=== PATIENT | male | born 1980 | race Hispanic/Latino ===

== ENCOUNTER 2023-02-26 00:34 | Inpatient (IN) | payer SELFPAY ==
[2023-02-26] VITALS (31 sets, daily range): BP systolic 100–122; BP diastolic 54–79; PULSE 71–97; RESP 9–18; TEMP 36.3–37.3; O2SAT 93–100; BMI 21.2
--- NOTE | ~2023-02-26 | XR_ITS ---
EXAMINATION: XR chest 1V portable DATE: 02/26/2023 03:05 INDICATION: Unresponsive. TECHNIQUE: A single frontal view of the chest was obtained. COMPARISON: None. FINDINGS: The chest demonstrates clear lungs without pneumonia, pleural effusion, or pneumothorax. Th e heart size is normal. IMPRESSION: 1. No acute cardiopulmonary disease. Reviewed, dictated and finalized at location A.
--- NOTE | ~2023-02-26 | CT_ITS ---
EXAMINATION: CT brain wo con DATE: 02/26/2023 02:52 INDICATION: Unresponsive. TECHNIQUE: Computed tomography (CT) of the head was performed without intravenous contrast. The mA wa s adjusted according to patient size. Iterative reconstruction technique was employed. The dose-lengt h product was 908.00 mGy-cm. COMPARISON: None FINDINGS: There is no intracranial hemorrhage, acute infarction, or abnormal intracranial mass lesion . The ventricles are normal in size. There is a left anterolateral scalp hematoma. There is mild muco farhat thickening in the paranasal sinuses. The mastoid air cells are normal. The orbits are normal. IMPRESSION: 1. Normal brain. Reviewed, dictated and finalized at location A. IMPRESSION: 1. Normal brain.
[2023-02-26 01:03] LABS: Appearance Urine Clear (Clear); Bacteria Urine None Seen /hpf; Bilirubin Urine Negative (Negative); Blood Urine Negative (Negative); Color Urine Yellow (Yellow); Glucose Urine UA Trace mg/dL (Negative); Ketones Urine Negative (Negative); Leukocyte Esterase Ur Negative LEU/UL (Negative); Nitrate Urine Negative (Negative); Protein Urine Trace mg/dL (Negative); RBC Urine 0-2 /hpf (0-2); Specific Grav Ur 1.007 (1.001-1.035); Squamous Epithelial Cell Urine None seen /hpf (Few); Urobilinogen Urine 0.2 mg/dL (<2.0); WBC Urine 0-5 /hpf
[2023-02-26] MEDS: NALOXONE HCL INJ 2 MG/2 ML AMP 4 MG IV PUSH ×2 (01:05→01:06)
[2023-02-26] MEDS: ONDANSETRON INJ 4 MG/2 ML VIAL IV PUSH ×2 (01:06→08:13)
[2023-02-26 01:15] LABS: Basophils Absolute Auto 0.1 K/mm3 (0.0-0.1); Basophils Percent Auto 0.6 % (0.2-1.2); Eosinophils Absolute Auto 0.1 K/mm3 (0-0.3); Eosinophils Percent Auto 0.6 % (0-4.4); Hematocrit 45.6 % (42.0-52.0); Hemoglobin 14.8 g/dL (14.0-18.0); Immature Granulocyte Absolute 0.03 K/mm3 (0.00-0.031); Immature Granulocyte Percent A 0.4 % (0-0.5); Lymphocytes Absolute Auto 4.71 K/mm3 (0.9-3.2); Lymphocytes Percent Auto 55.7 % (18.3-44.2); Mean Corpuscular HGB Conc 32.5 g/dl (32-36); Mean Corpuscular Hemoglobin 30.5 pg (26-34); Mean Platelet Volume 9.7 fl (7.4-10.4); Monocytes Absolute Auto 0.4 K/mm3 (0.1-0.6); Monocytes Percent Auto 4.8 % (2.6-8.5); Neutrophils Absolute Auto 3.2 K/mm3 (1.3-6.7); Neutrophils Percent Auto 37.9 % (45.5-73.1); Platelet Count Result 370 k/mm3 (150-375); Red Blood Count 4.85 M/mm3 (4.6-6.20); Red Cell Distribution Width 13.2 % (11.5-14.5); White Blood Count 8.5 K/mm3 (4.5-10.0)
--- NOTE | 2023-02-26 01:15 | PC.NURSE ---
Due to mental status, 4 mg of Narcan administered IVP with a VRBO by Dr. Henson at 0030. No improvement in condition. 4 mg of Narcan administered IVP with a VRBO by Dr. Henson. Improvement in condition. Patient removed NPA and began vomiting. Suction set up. 4 mg of Zofran administered IVP with a VRBO from Dr. Henson.
--- NOTE | 2023-02-26 01:18 | ED.GENADULT ---
HPI - General Adult General Chief complaint: Overdose Stated complaint: od Time Seen by Provider: 02/26/23 00:42 History of Present Illness HPI narrative: 42-year-old male presented the emergency department for evaluation after becoming unresponsive at a constitution party at home. Patient was suspected to have taken cocaine. Patient did admit to taking heroin. On scene patient was unresponsive with pinpoint pupils and patient was treated with 2 mg of nasal Narcan and then 2 mg of IV Narcan and had a partial response. Upon arrival to the ED patient was treated with additional 4 of Narcan and had a more significant response and was no longer having sonorous respirations. After approximately 30 minutes patient became more lethargic and was treated with an additional 4 mg of IV Narcan. Case was discussed with the pharmacist and a Narcan drip is being ordered. Related Data Home Medications Medication Instructions Recorded Confirmed No Home Medications 02/26/23 02/26/23 Allergies Allergy/AdvReac Type Severity Reaction Status Date / Time No Known Allergies Allergy Verified 02/26/23 10:43 Review of Systems Review of Systems: ROS unobtainable: Yes unobtainable due to medical condition PMF Past Medical History Medical History Alcohol abuse IV drug abuse Social History Social History Social History: Polysubstance abuse Smoking status: Never smoker Alcohol intake: current Drinks per week: 12 Substance use: current Spiritual care concerns: No Exam Narrative: APPEARANCE: Ill-appearing, somnolent HEAD: normocephalic, atraumatic. EYES: PERRLA/EOMI, conjunctivae clear. NOSE: Normal no drainage THROAT: Pharynx clear, no exudate. NECK: Supple. No adenopathy, no masses. RESPIRATORY: Airway patent, respirations nonlabored. Clear to auscultation bilaterally, no rales, rhonchi, wheezing. CARDIOVASCULAR: Regular rate and rhythm without murmurs rubs or gallops. ABDOMINAL: Soft, nontender, nondistended, normal bowel sounds MUSCULOSKELETAL: Moves all extremities. Strength/ROM intact, No edema, No calf tenderness. NEURO: Alert. Cranial nerves II through XII intact. SKIN: Warm, dry. Normal Color Course Course Emergency Course: 42-year-old male presenting to the ED for evaluation after having decreased responsiveness after being at a constitution party were alcohol cocaine and fentanyl were consumed. 2:19 AM patient has been on a Narcan drip for approximately 1 hour. On reevaluation patient does awaken to verbal stimuli. Patient's blood alcohol was 382 so this could be also contributing to his altered mental status. Case was discussed with the recordist chief and patient will be going to the ICU once he has an ABG and a negative head CT. Hospitalist was paged and accepted the patient. Patient was stable at time of admission. Vital Signs Vital signs: Vital Signs Pulse Rate 88 02/26/23 00:28 Respiratory Rate 16 02/26/23 00:28 Pulse Oximetry 95 02/26/23 00:28 Oxygen Delivery Room Air 02/26/23 00:28 Temperature 98.5 F 02/27/23 11:56 Pulse Rate 92 02/27/23 12:00 Respiratory Rate 15 02/27/23 11:56 Blood Pressure 128/78 02/27/23 11:56 Pulse Oximetry 99 02/27/23 12:00 Oxygen Delivery Room Air 02/27/23 12:00 Oxygen Flow Rate 2 02/26/23 16:00 Medical Decision Making Vital Signs Vital Signs: Vital Signs Pulse Rate 88 02/26/23 00:28 Respiratory Rate 16 02/26/23 00:28 Pulse Oximetry 95 02/26/23 00:28 Oxygen Delivery Room Air 02/26/23 00:28 Temperature 98.5 F 02/27/23 11:56 Pulse Rate 92 02/27/23 12:00 Respiratory Rate 15 02/27/23 11:56 Blood Pressure 128/78 02/27/23 11:56 Pulse Oximetry 99 02/27/23 12:00 Oxygen Delivery Room Air 02/27/23 12:00 Oxygen Flow Rate 2 02/26/23 16:00 Lab Data 02/26/23 00:58 02/26/23 00:58 Labs: Lab Results 02/26/23 02/26/23 02/26/23
[2023-02-26 01:25] LABS: Alanine Aminotransferase 34 U/L (6-50); Albumin Level 4.8 g/dL (3.5-5.1); Alkaline Phosphatase 67 U/L (38-126); Anion Gap 15 mmol/L (8-16); Aspartate Amino Transferase 31 U/L (17-59); Bilirubin,Total 0.4 mg/dL (0.2-1.3); Blood Urea Nitrogen 10 mg/dL (9-20); Carbon Dioxide 26 mmol/L (22-30); Chloride 103 mmol/L (98-107); Estimated CRCL calculation 326 ml/min; Estimated Glomerular Filt Rate > 60; Glucose 278 mg/dL (65-110); Potassium 3.6 mmol/L (3.4-5.0); Sodium 144 mmol/L (137-145)
[2023-02-26 01:29] LABS: Add Urine Microscopic? YES
[2023-02-26 01:30] LABS: Amphetamine Screen Urine Negative (Negative); Barbiturate Screen Urine Negative (Negative); Benzodiazepines Screen Urine Negative (Negative); Cannabinoid Screen Urine Negative (Negative); Cocaine Screen Urine Positive (Negative); Methadone Screen Urine Negative (Negative); Opiate Screen Urine Negative (Negative); Phencyclidine Screen Urine Negative (Negative)
[2023-02-26 01:47] LABS: Acetaminophen < 10 ug/mL (10-30); Salicylate < 1.0 mg/dL (2-20)
[2023-02-26 01:49] LABS: Ethanol 382 mg/dL (<10)
[2023-02-26 02:34] LABS: Alveolar/Arterial O2 Gradient 86.1 mmHg; Base Excess ABG -1.3 mEq/l (+/-2.0); Fractional Inspired Oxygen 44 %; HCO3 ABG 25.4 mEq/l (22.0-26.0); Oxygen Content ABG 21.6 %vol (16.0-22.0); Oxyhemoglobin 97.1 % THb (90.0-100.0); PO2 ABG 170.6 mmHg (80.0-100.0); PO2 FiO2 Ratio Arterial Blood 3.88 %; Total Hemoglobin 15.6 g/dL (12.0-18.0); pH ABG 7.324 (7.350-7.450)
[2023-02-26 02:36] LABS: Device NASAL CANNULA; Modified Allen's Test Pass; Site Drawn LEFT RADIAL
--- NOTE | 2023-02-26 02:44 | ECG_ITS ---
Measurements Intervals [place] Rate: 81 P: 48 MO: 128 QRS: 72 QRSD: 92 T: 29 QT: 367 QTc: 427 Interpretive Statements SINUS RHYTHM EARLY REPOLARIZATION Electronically Signed On 02-26-2023 12:59:07 CDT by Maurizio Huntley M.D.
--- NOTE | 2023-02-26 04:00 | PC.NURSE ---
Family was at bedside and states they need to leave. They leave a phone number for further updates. [phone]- Ruslan Vaughan.
--- NOTE | 2023-02-26 07:56 | PM.IMHP ---
H&P: HPI History of Present Illness Date/Time: 02/26/23 07:56 Chief Complaint: unresponsive episode Narrative: 42 year old male presenting with episode of unresponsiveness after being at a republican and taking several substances, including cocaine and heroin. In the ER, he had pinpoint pupils and was treated with narcan with a partial response. He was admitted to the ICU on a narcan drip. Patient somnolent, history taken from chart. Review of Systems Review of Systems: ROS unobtainable: Yes unobtainable due to mental status PMFSH Past Medical History Medical History Alcohol abuse IV drug abuse Social History Social History Social History: Polysubstance abuse Smoking status: Never smoker Alcohol intake: current Drinks per week: 12 Substance use: current Spiritual care concerns: No Meds Home Medications and Allergies Home Medications Medication Instructions Recorded Confirmed Type No Home Medications 02/26/23 02/26/23 History Allergies Allergy/AdvReac Type Severity Reaction Status Date / Time No Known Allergies Allergy Verified 02/26/23 10:43 Vital Signs Vital Signs - 24 hr 02/26/23 00:28 02/26/23 00:34 02/26/23 01:21 Temperature Pulse Rate 88 80 94 Respiratory Rate 16 13 Blood Pressure 122/74 Pulse Oximetry 95 95 Oxygen Delivery Room Air 02/26/23 01:10 02/26/23 01:15 02/26/23 01:16 Temperature Pulse Rate 94 89 86 Respiratory Rate 17 17 18 Blood Pressure 116/77 Pulse Oximetry 100 100 100 Oxygen Delivery 02/26/23 01:30 02/26/23 01:31 02/26/23 01:47 Temperature Pulse Rate 87 84 88 Respiratory Rate 16 15 14 Blood Pressure 118/73 Pulse Oximetry 100 100 100 Oxygen Delivery 02/26/23 02:16 02/26/23 02:17 02/26/23 03:07 Temperature Pulse Rate 91 97 87 Respiratory Rate 14 17 16 Blood Pressure 114/76 112/68 Pulse Oximetry 100 100 98 Oxygen Delivery 02/26/23 04:00 02/26/23 04:08 02/26/23 04:16 Temperature Pulse Rate 84 86 85 Respiratory Rate 16 16 15 Blood Pressure 122/62 119/63 Pulse Oximetry 95 93 93 Oxygen Delivery 02/26/23 04:50 02/26/23 05:03 02/26/23 06:28 Temperature Pulse Rate 84 85 77 Respiratory Rate 15 15 11 L Blood Pressure 100/54 L Pulse Oximetry 93 94 95 Oxygen Delivery 02/26/23 06:53 Temperature 97.3 F L Pulse Rate Respiratory Rate Blood Pressure Pulse Oximetry Oxygen Delivery Exam Narrative: General: Somnolent, on a Narcan drip HEENT: Atraumatic, normocephalic, mucous membranes moist CV: Regular rate and rhythm, S1, S2 Lungs: Clear to auscultation bilaterally, no rales or crackles noted, no wheezes, good air entry Abdomen: Soft, nontender, nondistended Extremities: Normal to inspection Skin: No rashes noted, no lesions or wounds seen Psych: Unable to assess H&P: Results Labs Labs: Short CBC 02/26/23 Range/Units 00:58 WBC 8.5 (4.5-10.0) K/mm3 Hgb 14.8 (14.0-18.0) g/dL Hct 45.6 (42.0-52.0) % Plt Count 370 (150-375) k/mm3 BMP 02/26/23 00:58 Sodium 144 Potassium 3.6 Chloride 103 Carbon Dioxide 26 BUN 10 Creatinine 0.90 Glucose 278 H Calcium 8.0 L Liver Function 02/26/23 Range/Units 00:58 Total Bilirubin 0.4 (0.2-1.3) mg/dL AST 31 (17-59) U/L ALT 34 (6-50) U/L Alkaline Phosphatase 67 (38-126) U/L Albumin 4.8 (3.5-5.1) g/dL Urine 02/26/23 Range/Units 00:50 Urine Color Yellow (Yellow) Urine Appearance Clear (Clear) Urine pH 6.0 (5.0-9.0) Ur Specific [place] 1.007 (1.001-1.035) Urine Protein Trace (Negative) mg/dL Urine Glucose (UA) Trace H (Negative) mg/dL Assessment and Plan Assessment and plan (1) Accidental fentanyl overdose: Code(s): T40.411A - Poisoning by fentanyl or fentanyl analogs, accidental (unintentional), initial encounter Status: Acute Assessment an
--- NOTE | 2023-02-26 08:19 | WPDCNINT ---
Assessment and Plan Assessment and plan (1) Drug overdose: Code(s): T50.901A - Poisoning by unspecified drugs, medicaments and biological substances, accidental (unintentional), initial encounter Status: Acute Assessment and Plan: Poly substance intoxication with cocaine opioid and alcohol although patient denies all Patient was drowsy but to ICU as his Narcan infusion had run out. He was arousable would fall back to sleep easily. I gave him 0.8 mg of Narcan push and which led to significant improvement as patient woke up and started talking and was smiling.. I will Continue Narcan infusion at this time. IV fluids Monitor in ICU with neuro checks (2) Alcohol intoxication: Code(s): F10.929 - Alcohol use, unspecified with intoxication, unspecified Status: Acute Assessment and Plan: IV fluids Thiamine folic acid (3) Acute respiratory failure: Code(s): J96.00 - Acute respiratory failure, unspecified whether with hypoxia or hypercapnia Status: Acute Assessment and Plan: ABG shows mild hypercarbia and respiratory acidosis. He is maintaining his saturations are nasal cannula. I will continue Narcan infusion at this time and monitor closely. Will avoid placing BiPAP as patient complained of nausea earlier. Will recheck ABG later in the day to confirm that it was not getting worse. I expect as patient is more awake the hypercarbia resolved (4) Toxic encephalopathy: Code(s): G92.9 - Status: Acute Assessment and Plan: Head CT was negative see above Plan DVT prophylaxis -Lovenox Nutrition -NPO at this time Code Status - Full Code Total Critical Care Time -30 minutes Due to a high probability of clinically significant, life threatening deterioration, the patient required my highest level of preparedness to intervene emergently and I personally spent this critical care time directly and personally managing the patient. This critical care time included obtaining a history; examining the patient; pulse oximetry; ordering and review of studies; arranging urgent treatment with development of a management plan; evaluation of patient's response to treatment; frequent reassessment; and discussions with other providers. It was exclusive of separately billable procedures and treating other patients and teaching time. Please see Assessment and Plan section and the rest of the note for further information on patient assessment and treatment [employer] Consult Note Consult date: 02/26/23 Reason for consult: Drug overdose HPI: Gustabo Messina is a 42 year old male was brought to ER for evaluation of altered mental status after becoming unresponsive at a democrat. Multiple other members were involved and were taken to different hospitals as they all were using cocaine. Patient did admit to taking heroin also later in the ER. On scene patient was unresponsive with pinpoint pupil and was given Narcan with partial improvement. Arrival to ED patient was again drowsy with sonorous breathing and was given additional Narcan improved. Patient was then started on Narcan infusion. Workup in ED showed normal WBC at 8.5. Showed mild hypercarbia with respiratory acidosis 7.3/50/170. Electrolytes were in acceptable range except mild hyperglycemia and urine drug screen was positive for alcohol and cocaine. When patient arrived to ICU he was drowsy but arousable. I was able to obtain some history through the paraprofessional interpreter but it was difficult as patient was drowsy and also reluctant in providing any meaningful history. He states that he does not remember what happened last night. 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 He states he drinks 12 pack of beer. He denies using cocaine heroin or any other drugs and answered no to almost all questions. Review of system was positive for nausea earlier in the ED but at this point he states that he does not feel
--- NOTE | 2023-02-26 08:54 | ADMGEN ---
This patient, Gustabo Messina, was admitted to Intensive Care Unit-2. Patient/family oriented to hospital policies and general routines including ID bracelet, bed and alarms, visiting hours, pain management, procedures, bathroom and other care routines, personal items, smoking policy, room service/diet, and visiting hours. Information on how to activate the Rapid Response Team has been discussed. Patient/Family are encouraged to report perceived risks to care and to ask questions if they do not understand what they are told or what they should do.
[2023-02-26] MEDS: KCL 20 MEQ/0.45% NS 1,000 ML 100 ML IV CONT ×2 (09:01→18:52)
[2023-02-26 09:05] LABS: Alveolar/Arterial O2 Gradient 9.6 mmHg; Base Excess ABG -3.3 mEq/l (+/-2.0); Fractional Inspired Oxygen 21 %; Oxygen Content ABG 19.8 %vol (16.0-22.0); Oxyhemoglobin 92.5 % THb (90.0-100.0); PCO2 ABG 51.8 mmHg (35.0-45.0); PO2 ABG 78.1 mmHg (80.0-100.0); PO2 FiO2 Ratio Arterial Blood 3.72 %; Total Hemoglobin 15.2 g/dL (12.0-18.0)
[2023-02-26 09:07] LABS: Modified Allen's Test Pass; Site Drawn RIGHT RADIAL; pH ABG 7.284 (7.350-7.450)
[2023-02-26] MEDS: ENOXAPARIN 40 MG/0.4 ML SYRINGE SUB-Q (09:11)
[2023-02-26] MEDS: THIAMINE HCL 200 MG/2 ML VIAL 100 MG IV PUSH (09:11)
[2023-02-26] MEDS: FOLIC ACID 1 MG/0.2 ML INJ IV PUSH (09:11)
[2023-02-26] MEDS: PANTOPRAZOLE SODIUM IV 40 MG VIAL IV PUSH (09:11)
[2023-02-26] MEDS: NALOXONE HCL 0.4 MG/ML VIAL 0.8 MG IV PUSH (09:15)
[2023-02-26 12:28] LABS: Glucose Point of Care 124 mg/dl (65-105)
[2023-02-26 17:35] LABS: Glucose Point of Care 100 mg/dl (65-105)
[2023-02-27] VITALS (10 sets, daily range): BP systolic 108–128; BP diastolic 68–78; PULSE 63–102; RESP 9–23; TEMP 36.9–37.3; O2SAT 96–100
[2023-02-27 00:14] LABS: Glucose Point of Care 99 mg/dl (65-105)
[2023-02-27] MEDS: KCL 20 MEQ/0.45% NS 1,000 ML 100 ML IV CONT (04:13)
[2023-02-27 06:33] LABS: Hematocrit 41.6 % (42.0-52.0); Hemoglobin 13.2 g/dL (14.0-18.0); Mean Corpuscular HGB Conc 31.7 g/dl (32-36); Mean Corpuscular Hemoglobin 30.7 pg (26-34); Mean Corpuscular Volume 96.7 fl (80-100); Mean Platelet Volume 9.7 fl (7.4-10.4); Platelet Count Result 264 k/mm3 (150-375); Red Cell Distribution Width 13.1 % (11.5-14.5); White Blood Count 9.9 K/mm3 (4.5-10.0)
[2023-02-27 08:27] LABS: Alanine Aminotransferase 28 U/L (6-50); Albumin Level 3.7 g/dL (3.5-5.1); Alkaline Phosphatase 65 U/L (38-126); Anion Gap 6 mmol/L (8-16); Aspartate Amino Transferase 27 U/L (17-59); Bilirubin,Total 0.6 mg/dL (0.2-1.3); Blood Urea Nitrogen 11 mg/dL (9-20); Calcium 7.3 mg/dL (8.4-10.2); Carbon Dioxide 25 mmol/L (22-30); Chloride 105 mmol/L (98-107); Estimated CRCL calculation 133 ml/min; Estimated Glomerular Filt Rate > 60; Glucose 111 mg/dL (65-110); Potassium 4.1 mmol/L (3.4-5.0); Sodium 136 mmol/L (137-145)
--- NOTE | 2023-02-27 08:29 | WPDINTPN ---
Progress Note: A&P Assessment and Plan (1) Drug overdose: Code(s): T50.901A - Poisoning by unspecified drugs, medicaments and biological substances, accidental (unintentional), initial encounter Status: Acute Assessment and Plan: Poly substance intoxication with cocaine opioid and alcohol On admission patient was drowsy but to ICU as his Narcan infusion was continued. He is much more awake and alert this morning. I will discontinue Narcan infusion monitor patient. IV fluids will be continued Advance diet Monitor in ICU with neuro checks (2) Alcohol intoxication: Code(s): F10.929 - Alcohol use, unspecified with intoxication, unspecified Status: Acute Assessment and Plan: On iV fluids Thiamine folic acid (3) Acute respiratory failure: Code(s): J96.00 - Acute respiratory failure, unspecified whether with hypoxia or hypercapnia Status: Acute Assessment and Plan: ABG shows mild hypercarbia and respiratory acidosis on presentation but he was maintaining maintaining his saturations are nasal cannula. Patient was continued on Narcan infusion monitor closely. Patient was not placed on biPAP as patient complained of nausea earlier. Patient now alert awake oriented and sitting in chair. (4) Toxic encephalopathy: Code(s): G92.9 - Status: Acute Assessment and Plan: Head CT was negative see above Plan DVT prophylaxis -Lovenox Nutrition -advance diet Code Status - Full Code Incentive spirometry up in chair Potentially transfer out of ICU today Subjective Date/time seen: 02/27/23 Patient continues to be on Narcan infusion. This morning he is awake alert and oriented. Denies any complaints. Patient was seen with the help of audio video crew boss Patient denies fever, chest pain, shortness of breath, cough, nausea vomiting, abdominal pain, diarrhea, headache or constipation.. Other systems were reviewed and were negative Patient today admitted to drinking heavily and using cocaine but does not know if any other drugs mixed with cocaine. He admitted that he uses cocaine once a week Review of Systems Review of Systems: All systems reviewed & are unremarkable except as noted in HPI and below (Subjective) ROS unobtainable: Yes unobtainable due to mental status Exam Narrative: General: Pt is alert awake and in NAD Lungs/Chest: Trachea central Clear BS B/L, No crackles or wheezing. Cardiac: RRR. Normal S1 S2. No murmurs Circulation: Pedal pulses are intact and symmetrical. Abdomen: Normal bowel sounds.. Soft. NT. ND. Extremities: No clubbing, cyanosis or edema. Warm : Rosales in place Neurologic: Follows commands. Moves all 4 extremities PERRL Skin: No Rash Objective Data Vital Signs Vital Signs: Vital Signs - 24 hr 02/26/23 08:54 02/26/23 09:31 02/26/23 09:00 Temperature 36.7 C Pulse Rate 82 73 Respiratory Rate 16 12 Blood Pressure 116/78 114/69 Pulse Oximetry 94 100 99 Oxygen Delivery Nasal Cannula Oxygen Flow Rate 2 02/26/23 10:00 02/26/23 09:30 02/26/23 10:00 Temperature Pulse Rate 74 78 74 Respiratory Rate 16 15 Blood Pressure 102/67 Pulse Oximetry 100 100 Oxygen Delivery Nasal Cannula Oxygen Flow Rate 2 02/26/23 12:00 02/26/23 12:00 02/26/23 12:00 Temperature 36.6 C Pulse Rate 78 80 Respiratory Rate 9 L Blood Pressure 101/54 L Pulse Oximetry 100 100 Oxygen Delivery Nasal Cannula Oxygen Flow Rate 2 02/26/23 12:00 02/26/23 12:00 02/26/23 14:00 Temperature Pulse Rate 75 75 Respiratory Rate 14 Blood Pressure 101/59 L Pulse Oximetry 100 100 Oxygen Delivery Nasal Cannula Oxygen Flow Rate 2 02/26/23 14:00 02/26/23 16:00 02/26/23 16:00 Temperature Pulse Rate 75 71 Respiratory Rate Blood Pressure Pulse Oximetry 100 Oxygen Delivery Nasal Cannula Oxygen Flow Rate 2 02/26/23 16:00 02/26/23 18:00 02/26/23 18:00 Temperature 37.0 C
[2023-02-27] MEDS: ENOXAPARIN 40 MG/0.4 ML SYRINGE SUB-Q (08:36)
[2023-02-27] MEDS: PANTOPRAZOLE SODIUM IV 40 MG VIAL IV PUSH (08:36)
[2023-02-27] MEDS: THIAMINE HCL 200 MG/2 ML VIAL 100 MG IV PUSH (08:36)
[2023-02-27] MEDS: FOLIC ACID 1 MG/0.2 ML INJ IV PUSH (08:39)
--- NOTE | 2023-02-27 12:14 | PM.DS ---
DS: Admitting Diagnosis Discharge Date 02/27/23 Admitting Diagnosis substance abuse/overdose DS: Discharge Diagnosis Discharge Diagnosis (1) Drug overdose: Code(s): T50.901A - Poisoning by unspecified drugs, medicaments and biological substances, accidental (unintentional), initial encounter Status: Acute Assessment and Plan: Poly substance intoxication with cocaine opioid and alcohol although patient denies all Patient was drowsy but to ICU as his Narcan infusion had run out. He was arousable would fall back to sleep easily. I gave him 0.8 mg of Narcan push and which led to significant improvement as patient woke up and started talking and was smiling.. I will Continue Narcan infusion at this time. IV fluids Monitor in ICU with neuro checks (2) Alcohol intoxication: Code(s): F10.929 - Alcohol use, unspecified with intoxication, unspecified Status: Acute Assessment and Plan: IV fluids Thiamine folic acid (3) Acute respiratory failure: Code(s): J96.00 - Acute respiratory failure, unspecified whether with hypoxia or hypercapnia Status: Acute Assessment and Plan: ABG shows mild hypercarbia and respiratory acidosis. He is maintaining his saturations are nasal cannula. I will continue Narcan infusion at this time and monitor closely. Will avoid placing BiPAP as patient complained of nausea earlier. Will recheck ABG later in the day to confirm that it was not getting worse. I expect as patient is more awake the hypercarbia resolved (4) Toxic encephalopathy: Code(s): G92.9 - Status: Acute Assessment and Plan: Head CT was negative see above Plan DVT prophylaxis -Lovenox Nutrition -NPO at this time Code Status - Full Code Total Critical Care Time -30 minutes Due to a high probability of clinically significant, life threatening deterioration, the patient required my highest level of preparedness to intervene emergently and I personally spent this critical care time directly and personally managing the patient. This critical care time included obtaining a history; examining the patient; pulse oximetry; ordering and review of studies; arranging urgent treatment with development of a management plan; evaluation of patient's response to treatment; frequent reassessment; and discussions with other providers. It was exclusive of separately billable procedures and treating other patients and teaching time. Please see Assessment and Plan section and the rest of the note for further information on patient assessment and treatment DS: Summary Hospital Course Hospital Course: 42 year old male with no known past medical history is presenting with episode of unresponsiveness after being at a libertarian and taking several substances, including cocaine and heroin.? In the ER, he had pinpoint pupils and was treated with narcan with a partial response.? He was admitted to the ICU on a narcan drip.? Patient somnolent, history taken from chart. He was able to be weaned off of the Narcan drip. All symptoms resolved. He was discharged in stable condition. Time Spent with Patient Time attestation: Total time spent providing and/or coordinating discharge services: Exam Narrative: General: Pt is alert awake and in NAD Lungs/Chest: Trachea central Clear BS B/L, No crackles or wheezing. Cardiac: RRR. Normal S1 S2. No murmurs Circulation: Pedal pulses are intact and symmetrical. Abdomen: Normal bowel sounds.. Soft. NT. ND. Extremities: No clubbing, cyanosis or edema. Warm : Rosales in place Neurologic: Follows commands. Moves all 4 extremities PERRL Skin: No Rash DS: Data Data Completed and Pending Labs on day of discharge: Labs from last 24 hours 02/27/23 02/27/23 02/27/23 06:24 06:24 00:08 WBC 9.9 RBC 4.30 L Hgb 13.2 L Hct 41.6 L MCV 96.7 MCH 30.7 MCHC 31.7 L RDW 13.1 Plt Count 264 MPV 9.7 Sodium 136 L Potassium 4.
== END 2023-02-27 13:45 | disposition home or self-care (01) | DRG 812 ==
LOC: ANHED 07:14 → ANHICU 08:09
PROVIDERS: Internal Medicine; Admitting Provider Internal Medicine; Emergency Provider Emergency Medicine; Visit Provider Student in an Organized Health Care Education/Training Program
DX: T40.411A Poisoning by fentanyl or fentanyl analogs, accidental (unintentional), initial encounter (principal); J96.02 Acute respiratory failure with hypercapnia; G92.8 Other toxic encephalopathy; T40.5X1A Poisoning by cocaine, accidental (unintentional), initial encounter; T40.2X1A Poisoning by other opioids, accidental (unintentional), initial encounter; F10.929 Alcohol use, unspecified with intoxication, unspecified; R73.9 Hyperglycemia, unspecified; R40.4 Transient alteration of awareness
CPT/HCPCS: 36415; 36600; 70450; 71045; 80053; 80307; 81001; 82805; 82948; 83735; 85025; 85027; 93005; 96374; 96375; 96376; 99285; C9113; G0378; J1650; J2310; J2405; J3411; J7050